=== PATIENT | female | born 1990 | race African-American/Black ===

== ENCOUNTER 2017-09-26 09:19 | Emergency (ER) | payer OTHER ==
[2017-09-26 12:43] LABS: HEMATOCRIT 42.4 % (36.0-47.0); HEMOGLOBIN 14.8 g/dl (12.0-16.0); MEAN CORPUSCULAR HEMOGLOBIN 31.2 pg (27.0-33.0); MEAN CORPUSCULAR HGB CONC 34.9 g/dl (32.0-36.5); MEAN CORPUSCULAR VOLUME 89.3 fl (80.0-96.0); PLATELET COUNT, AUTOMATED 295 10^3/uL (150-450); RED BLOOD COUNT 4.75 10^6/uL (4.00-5.40); RED CELL DISTRIBUTION WIDTH 12.2 % (11.5-14.5); WHITE BLOOD COUNT 4.6 10^3/uL (4.0-10.0)
[2017-09-26 12:56] LABS: CONTROL LINE HCG INT CTR LINE PRESENT; HCG, SERUM QUALITATIVE NEGATIVE (NEGATIVE)
[2017-09-26 13:01] LABS: AMPHETAMINES LEVEL URINE NEGATIVE (NEGATIVE); BARBITURATES URINE NEGATIVE (NEGATIVE); BENZODIAZEPINES URINE NEGATIVE (NEGATIVE); CANNABINOIDS URINE NEGATIVE (NEGATIVE); COCAINE METABOLITE URINE NEGATIVE (NEGATIVE); METHADONE URINE NEGATIVE (NEGATIVE); OPIATES URINE NEGATIVE (NEGATIVE); PHENCYCLIDINE URINE NEGATIVE (NEGATIVE)
[2017-09-26 13:10] LABS: CPK CREATINE PHOSPHOKINASE 83 U/L (26-192); TROPONIN I < 0.02 NG/ML (< 0.10)
[2017-09-26 13:21] LABS: ALBUMIN 3.3 GM/DL (3.2-5.2); ALBUMIN/GLOBULIN RATIO 0.73 (1.00-1.93); ALKALINE PHOSPHATASE 79 U/L (45-117); ALT/SGPT 17 U/L (12-78); ANION GAP 10 MEQ/L (8-16); AST/SGOT 23 U/L (7-37); BILIRUBIN,DIRECT < 0.1 MG/DL (0.0-0.2); BILIRUBIN,TOTAL 0.3 MG/DL (0.2-1.0); BLOOD UREA NITROGEN 6 MG/DL (7-18); CALCIUM LEVEL 8.5 MG/DL (8.5-10.1); CARBON DIOXIDE LEVEL 27 MEQ/L (21-32); CHLORIDE LEVEL 104 MEQ/L (98-107); CREATININE FOR GFR 0.82 MG/DL (0.55-1.30); ETHYL ALCOHOL (ETHANOL) 0.206 % (0.000-0.010); GLOMERULAR FILTRATION RATE > 60.0 (>60); GLUCOSE, FASTING 85 MG/DL (70-100); POTASSIUM SERUM 4.2 MEQ/L (3.5-5.1); SALICYLATE LEVEL < 1.7 MG/DL (5.0-30.0); SODIUM LEVEL 141 MEQ/L (136-145); TOTAL PROTEIN 7.8 GM/DL (6.4-8.2)
[2017-09-26 13:31] LABS: ACETAMINOPHEN LEVEL < 2.0 UG/ML (10.0-30.0)
[2017-09-26 14:52] LABS: D-DIMER QUANT 294.8 ng/ml (<500)
== END 2017-09-26 19:06 | disposition home or self-care (01) ==
LOC: M ED 09:19
DX: F10.129 Alcohol abuse with intoxication, unspecified (principal)
CPT/HCPCS: 71046

== ENCOUNTER 2018-03-02 03:45 | Emergency (ER) | payer OTHER | END 2018-03-02 05:55 | disposition home or self-care (01) | LOC: M ED 03:45 | DX: F10.120 Alcohol abuse with intoxication, uncomplicated (principal); F41.9 Anxiety disorder, unspecified; F17.200 Nicotine dependence, unspecified, uncomplicated | CPT/HCPCS: 99284 ==

== ENCOUNTER 2019-02-05 10:45 | Inpatient (IN) | payer OTHER ==
[~2019-02-05] VITALS: Ht 162.6 cm; Wt 68.5 kg
[~2019-02-05 10:45] MED LIST: HYDR-3363 PO
[2019-02-05 13:58] LABS: HEMATOCRIT 47.8 % (36.0-47.0); HEMOGLOBIN 17.2 g/dl (12.0-15.5); MEAN CORPUSCULAR VOLUME 94.5 fl (80.0-96.0); PLATELET COUNT, AUTOMATED 279 10^3/uL (150-450); RED BLOOD COUNT 5.06 10^6/uL (4.00-5.40); WHITE BLOOD COUNT 6.2 10^3/uL (4.0-10.0)
[2019-02-05 14:18] LABS: AMPHETAMINES LEVEL URINE NEGATIVE (NEGATIVE); BARBITURATES URINE NEGATIVE (NEGATIVE); BENZODIAZEPINES URINE NEGATIVE (NEGATIVE); CANNABINOIDS URINE POSITIVE (NEGATIVE); COCAINE METABOLITE URINE NEGATIVE (NEGATIVE); METHADONE URINE NEGATIVE (NEGATIVE); OPIATES URINE NEGATIVE (NEGATIVE); PHENCYCLIDINE URINE NEGATIVE (NEGATIVE)
[2019-02-05 14:28] LABS: ACETAMINOPHEN LEVEL < 2.0 UG/ML (10.0-30.0); ALBUMIN 4.1 GM/DL (3.2-5.2); ALT/SGPT 18 U/L (12-78); BILIRUBIN,DIRECT 0.2 MG/DL (0.0-0.2); BILIRUBIN,TOTAL 0.7 MG/DL (0.2-1.0); BLOOD UREA NITROGEN 8 MG/DL (7-18); CALCIUM LEVEL 9.4 MG/DL (8.5-10.1); CARBON DIOXIDE LEVEL 31 MEQ/L (21-32); CHLORIDE LEVEL 103 MEQ/L (98-107); CREATININE FOR GFR 1.09 MG/DL (0.55-1.30); ETHYL ALCOHOL (ETHANOL) < 0.003 % (0.000-0.010); GLOMERULAR FILTRATION RATE > 60.0 (>60); GLUCOSE, FASTING 103 MG/DL (70-100); POTASSIUM SERUM 3.8 MEQ/L (3.5-5.1); SALICYLATE LEVEL 2.6 MG/DL (5.0-30.0); SODIUM LEVEL 139 MEQ/L (136-145); THYROID STIMULATING HORMONE 0.643 uIU/ML (0.358-3.740); TOTAL PROTEIN 8.7 GM/DL (6.4-8.2)
[2019-02-05] MEDS ORDERED: LORA-674 PO (14:59)
[2019-02-05] MEDS ORDERED: MAALOX 30 ML SUSP *UDC PO PRN (16:00)
[2019-02-05] MEDS ORDERED: MOM 30ML SUSPENSION UDC PO PRN (16:00)
[2019-02-05] MEDS ORDERED: traZODone 50 MG TAB PO PRN (16:00)
[2019-02-06 06:30] VITALS: BP 125/71
--- NOTE | 2019-02-06 09:10 | HPEPDOC ---
General Date of Admission Feb 05, 2019 at 15:57 Date of Service: Feb 06, 2019 Attending Physician: BARRINGTON UNDERWOOD MD Chief Complaint The patient is a 28-year-old female admitted with a reason for visit of Unspecified Mood Disorder. Source: RN/ History of Present Illness 28-year-old female in active daily, admitted to inpatient psychiatric unit on account of acute depressive episode. On assessment, patient did admit to some degree of suicidal ideation. Patient complains of right thumb pain for the past 2 days. Otherwise, denies chills, chest pain, shortness of breath. Home Medications Scheduled Loratadine (Loratadine) 10 Mg Tablet, 10 MG PO QHS, (Reported) Allergies Coded Allergies: No Known Allergies (Unverified , 09/26/17) Past Medical History Medical History Depression Anxiety Nicotine dependence Polysubstance abuse with THC Surgical History Denies any surgical history Family History Sibling with bipolar depression, schizophrenia. Social History Smokes half a pack of cigarettes per day, denies alcohol use, THC use. A-FIB/CHADSVASC A-FIB History Current/History of A-Fib/PAF?: No Current PO Anticoag Therapy: No Review of Systems Other systems A 10 point pertinent review of systems was completed, negative except as stated in the history of presenting illness. Physical Examination Other physical findings GENERAL: NAD SKIN : Warm, dry intact HEENT: Atraumatic, normocephalic, PERRL, moist mucous membrane CARDIOVASCULAR: Regular rate and rhythm, S1S2, no JVD, no edema, distal pulses + and palpable RESP: CTAB, no accessory muscle use noted ABDOMEN: BS+ non distended non tender MS: no joint deformities NEURO: Alert and oriented x 3, CN2-12 grossly intact PSYCH: no anxiety or agitation, appropriate mood and affect. Vital Signs Vital Signs Date Time Temp Pulse Resp B/P (MAP) Pulse Ox O2 Delivery O2 Flow Rate FiO2 02/06/19 06:30 97.5 76 14 125/71 (89) 02/05/19 16:32 100 02/05/19 10:45 Room Air Laboratory Data Labs 24H Laboratory Tests 2 02/05/19 13:44: Nucleated Red Blood Cells % (auto) 0.0, Anion Gap 5L, Glomerular Filtration Rate > 60.0, Calcium Level 9.4, Aspartate Amino Transf (AST/SGOT) 22, Alanine Aminotransferase (ALT/SGPT) 18, Alkaline Phosphatase 122H, Total Bilirubin 0.7, Direct Bilirubin 0.2, Total Protein 8.7H, Albumin 4.1, Albumin/Globulin Ratio 0.89L, Thyroid Stimulating Hormone (TSH) 0.643, Salicylates Level 2.6L, Urine Amphetamines Screen NEGATIVE, Urine Benzodiazepines Screen NEGATIVE, Urine Opiates Screen NEGATIVE, Urine Methadone Screen NEGATIVE, Acetaminophen Level < 2.0L, Urine Barbiturates Screen NEGATIVE, Urine Phencyclidine Screen NEGATIVE, Urine Cocaine Metabolite Screen NEGATIVE, Urine Cannabinoids Screen POSITIVEH, Ethyl Alcohol Level < 0.003 CBC/BMP Laboratory Tests 02/05/19 13:44 Red Blood Count 5.06, Mean Corpuscular Volume 94.5, Mean Corpuscular Hemoglobin 34.0 H, Mean Corpuscular Hemoglobin Concent 36.0, Red Cell Distribution Width 13.1 Assessment/Plan Polycythemia -Repeat CBC shows hemoglobin levels still elevated at 16.5 -Patient is asymptomatic Right thumb pain. -Topical NSAID to apply to affected extremity as needed Polysubstance abuse -Assessment and management by primary team Depression with suicidal ideation -Assessment and management by primary team Plan / VTE VTE Prophylaxis Ordered?: No VTE Exclusion Mechanical Proph: Low Risk for VTE JACOBO MARSHALL Feb 06, 2019 09:10
[2019-02-06 10:00] LABS: BASO % 0.5 % (0.0-1.0); HEMATOCRIT 46.9 % (36.0-47.0); HEMOGLOBIN 16.5 g/dl (12.0-15.5); LYMPH # 1.3 10^3/uL (1.5-6.5); LYMPH % 30.9 % (24.0-44.0); MEAN CORPUSCULAR HEMOGLOBIN 33.6 pg (27.0-33.0); MEAN CORPUSCULAR HGB CONC 35.2 g/dl (32.0-36.5); MEAN CORPUSCULAR VOLUME 95.5 fl (80.0-96.0); MONO # 0.6 10^3/uL (0.0-0.8); NEUTROPHILS # 2.2 10^3/uL (1.8-7.7); NEUTROPHILS % 52.4 % (36.0-66.0); PLATELET COUNT, AUTOMATED 246 10^3/uL (150-450); RED BLOOD COUNT 4.91 10^6/uL (4.00-5.40); WHITE BLOOD COUNT 4.1 10^3/uL (4.0-10.0)
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
[2019-02-06] MEDS: ANALGESIC BALM CRM 120 GM TOP SCH ×3 (12:28→21:00)
[2019-02-06 17:46] VITALS: BP 124/81
[2019-02-06 18:00] VITALS: BP 124/81
[2019-02-07 06:31] VITALS: BP 110/67
[2019-02-07] MEDS: ANALGESIC BALM CRM 120 GM TOP SCH ×4 (09:58→20:00)
[2019-02-07 18:14] VITALS: BP 134/81
[2019-02-07] MEDS: ACETAMINOPHEN TAB 650MG DOSE (2X325MG) PO PRN (19:59)
--- NOTE | 2019-02-07 20:15 | MHIPNPDOC ---
[facility] Progress Note Progress Note DATE OF SERVICE: 02/07/19 HISTORY: Patient is a 28 -year-old , female, who as per ED report: "PT is AD 4 years without combat deployments. 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 Prior to leaving she tested positive for mairjuana so her date was canceled and she was given extra duty, redictin of rank and pay. PT had one week left and she went AWOL stating she ahd a family emergency. While she was gone PT was communicating with her [facility] counselor but she states her messages to her [place] went unanswered. PT decided to fly back here and address the AWOL and she arrived yesterday. A friend picked her up and let her stay the night. [place]. 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 PT states she was messaging her counselor that she is overwhelmed and the counselor told her to go to ED. 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 I'll do anything I can think of. I have no one here". VITAL SIGNS: See below. NEW TEST RESULTS: See below CURRENT MEDICATIONS: See below. MENTAL STATUS EXAMINATION: ASSESSMENT: MANAGEMENT PLAN: . General Appearance: well groomed, appears stated age, hospital scubs/clothing Build: average Demeanor: less guarded, not hostile, preoccupied, sad, stressed Eye Contact: poor Activity: Less anxious, sad, she doesn't have psychomotor agitation Behavior: depressed, angry but controlled Speech: spontaneous, fluent, normal tone, volume, rhythm, rate Mood: depressed, anxious, angry, irritable Affect: less constricted, appropriate, labile, incongruent, anxious, sad Thought Process: logical/linear Thought Content (Delusions): none reported Thought Content (Other): catastrophe thinking, generalization Thought Content (Aggressive): none reported Perception (Hallucinations): none reported Perception (Other): none reported Cognition (Impairment of): none reported Cognition(Intelligence Est.): average Oriented: Awake, Alert, Oriented times three Insight: poor Judgment: Poor Psychosis: Denies Diagnoses 1. Unspecified mood disorder, r/o major depressive disorder, recurrent, severe 2. NELSON 3. Unspecified trauma stressor disorder Assessment: The patient is still very stressed out and still refuses medications but she is less guarded, less angry, less irritable. She is still sad, at times she tries to contains her tears. She tells me how she feels, the arguments, the misunderstandings, lorena lack of support (as she perceives it 0 from her Moni that lead to all these problems. She says she only wants to get it over and get out of the [employer]. TIME SPENT: 30 minutes. Vital Signs Vital Signs Date Time Temp Pulse Resp B/P (MAP) Pulse Ox O2 Delivery O2 Flow Rate FiO2 02/07/19 18:14 97.8 73 16 134/81 (98) 02/05/19 16:32 100 02/05/19 10:45 Room Air Current Medications Current Medications Acetaminophen (Tylenol Tab) 650 mg Q6HP PRN PO HEADACHE or DISCOMFORT; Start 02/05/19 at 16:00 Al Hydrox/Mg Hydrox/Simethicone (Mylanta) 30 ml Q4HP PRN PO HEARTBURN/INDIGESTION; Start 02/05/19 at 16:00 Home Med (Med Rec Complete!) ASDIRECTED XX ; Start 02/05/19 at 15:00; Stop 02/05/19 at 15:21; Status DC Magnesium Hydroxide (Milk Of Magnesia) 30 ml DAILYPRN PRN PO CONSTIPATION; Start 02/05/19 at 16:00 Menthol/Methyl Salicylate (Bengay Cream) apply to right thumb QID TOP Last administered on 02/07/19at 14:00; Start 02/06/19 at 13:00 Trazodone HCl (Desyrel) 50 mg QHSP PRN PO INSOMNIA; Start 02/05/19 at 16:00 Allergies Coded Allergies: No Known Allergies (Unverified , 09/26/17) FERNANDO FORD MD Feb 07, 2019 19:48
[2019-02-08 06:33] VITALS: BP 116/73
[2019-02-08] MEDS: ACETAMINOPHEN TAB 650MG DOSE (2X325MG) PO PRN ×3 (08:59→22:55)
[2019-02-08] MEDS: ANALGESIC BALM CRM 120 GM TOP SCH ×4 (08:59→21:00)
[2019-02-08 18:02] VITALS: BP 113/70
--- NOTE | 2019-02-08 21:34 | MHIPNPDOC ---
[facility] Progress Note Progress Note DATE OF SERVICE: 02/08/19 HISTORY: Patient is a 28 -year-old , female, who as per ED report: "PT is AD 4 years without combat deployments. 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 Prior to leaving she tested positive for mairjuana so her date was canceled and she was given extra duty, redictin of rank and pay. PT had one week left and she went AWOL stating she ahd a family emergency. While she was gone PT was communicating with her [facility] counselor but she states her messages to her [place] went unanswered. PT decided to fly back here and address the AWOL and she arrived yesterday. A friend picked her up and let her stay the night. [place]. 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 PT states she was messaging her counselor that she is overwhelmed and the counselor told her to go to ED. 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 I'll do anything I can think of. I have no one here". VITAL SIGNS: See below. NEW TEST RESULTS: See below CURRENT MEDICATIONS: See below. MENTAL STATUS EXAMINATION: ASSESSMENT: MANAGEMENT PLAN: . General Appearance: well groomed, appears stated age, hospital scrubs/clothing Build: average Demeanor: Extremely anxious, at times she looks as if she is shaking, she is very scared about the consequences of having gone AWOL and smoking marijuana within the [employer] Eye Contact: poor Activity: Restless, fidgety, anxious Behavior: depressed, angry. She lost control today and walked out of the room, she slammed her room door. Speech: spontaneous, fluent, normal tone, volume, rhythm, rate Mood: depressed, anxious, angry, irritable Affect: angry, very anxious, labile, incongruent, sad/depressed Thought Process: logical/linear Thought Content (Delusions): none reported Thought Content (Other): catastrophic thinking, over generalization Thought Content (Aggressive): none reported Perception (Hallucinations): none reported Perception (Other): none reported Cognition (Impairment of): none reported Cognition(Intelligence Est.): average Oriented: Awake, Alert, Oriented times three Insight: poor Judgment: Poor Psychosis: Denies Diagnoses 1. Unspecified mood disorder, r/o major depressive disorder, recurrent, severe 2. NELSON 3. Unspecified trauma stressor disorder Assessment: This commercial insurance underwriter was trying to help her think past the present moment and she became irritable, she asked "do you realize that I'm leavint the [employer] as a criminal?" I said, I knew that, she walked out, she left the room and slammed the door of her room. later on she was brought in by Ila because she had asked to see me after Ila told her we could help her if she agreed to it. She was receptive, she ventilated, she was shaking and tearful at times (but trying to control the tears all the time). I explained how SSRI's work and asked her to reconsider, once again, to take her medications, then she said she was going to tell her about the medicines and I said that if she decides to take them she only has to tell the Nurses if I'm gone for the day and they can contact me, so we can start treatment. I told her I'm really concerned about her because she is crumbling and if she goes back like this to the [employer], she might not be able to tolerate it. She is very vulnerable, very anxious, very depressed. Vital Signs Vital Signs Date Time Temp Pulse Resp B/P (MAP) Pulse Ox O2 Delivery O2 Flow Rate FiO2 02/08/19 18:02 99.2 67 16 113/70 (84) 02/05/19 16:32 100 02/05/19 10:45 Room Air Current Medications Current Medications Acetaminophen (Tylenol Tab) 650 mg Q6HP PRN PO HEADACHE or DISCOMFORT Last administered on 02/08/19at 15:36; Start 02/05/19 at 16:00 Al Hydrox/Mg Hydrox/Simethicone (Mylanta) 30 ml Q4HP PRN PO HEARTBURN/INDIGESTION; Start 02/05/19 at 16:00 Home Med (Med Rec Complete!) ASDIRECTED XX ; Start 02/05/19 at 15:00; Stop 02/05/19 at 15:21; Status DC Magnesium Hydroxide (Milk Of Magnesia) 30 ml DAILYPRN PRN PO CONSTIPATION; Start 02/05/19 at 16:00 Menthol/Methyl Salicylate (Bengay Cream) apply to right thumb QID TOP Last a dministered on 02/07/19at 14:00; Start 02/06/19 at 13:00 Trazodone HCl (Desyrel) 50 mg QHSP PRN PO INSOMNIA; Start 02/05/19 at 16:00 Allergies Coded Allergies: No Known Allergies (Unverified , 09/26/17) FERNANDO FORD MD Feb 08, 2019 19:34
[2019-02-09 06:49] VITALS: BP 116/72
[2019-02-09] MEDS: ANALGESIC BALM CRM 120 GM TOP SCH ×4 (08:28→21:00)
[2019-02-09] MEDS: ACETAMINOPHEN TAB 650MG DOSE (2X325MG) PO PRN ×2 (15:30→23:11)
[2019-02-09 18:03] VITALS: BP 125/78
--- NOTE | 2019-02-09 23:30 | MHIPNPDOC ---
[facility] Progress Note Progress Note DATE OF SERVICE: 02/09/19 HISTORY: Patient is a 28 -year-old , female, who as per ED report: "PT is AD 4 years without combat deployments. 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 Prior to leaving she tested positive for mairjuana so her date was canceled and she was given extra duty, redictin of rank and pay. PT had one week left and she went AWOL stating she ahd a family emergency. While she was gone [facility] but she states her messages to her [employer] went unanswered. PT decided to fly back here and address the AWOL and she arrived yesterday. A friend picked her up and let her stay the night. [place]. 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 PT states she was messaging her counselor that she is overwhelmed and the counselor told her to go to ED. 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 I'll do anything I can think of. I have no one here". VITAL SIGNS: See below. NEW TEST RESULTS: See below CURRENT MEDICATIONS: See below. MENTAL STATUS EXAMINATION: ASSESSMENT: MANAGEMENT PLAN: . General Appearance: well groomed, appears stated age, hospital scrubs/clothing Build: average Demeanor: Extremely anxious, at times she looks as if she is shaking, she is very scared about the consequences of having gone AWOL and smoking marijuana within [employer] Eye Contact: poor Activity: Restless, fidgety, anxious Behavior: depressed, angry. She lost control today and walked out of the room, she slammed her room door. Speech: spontaneous, fluent, normal tone, volume, rhythm, rate Mood: depressed, anxious, angry, irritable Affect: angry, very anxious, labile, incongruent, sad/depressed Thought Process: logical/linear Thought Content (Delusions): none reported Thought Content (Other): catastrophic thinking, over generalization Thought Content (Aggressive): none reported Perception (Hallucinations): none reported Perception (Other): none reported Cognition (Impairment of): none reported Cognition(Intelligence Est.): average Oriented: Awake, Alert, Oriented times three Insight: poor Judgment: Poor Psychosis: Denies Diagnoses 1. Unspecified mood disorder, r/o major depressive disorder, recurrent, severe 2. NELSON 3. Unspecified trauma stressor disorder Assessment: Patient is very irritable, lopez because she says she feels everybody is getting frustrated because she is not taking the "f....ing antidepressants, like this is my f....ing problem, why are they getting f rustrated?". I explained that there is something called counter transference and probably the staff worries about her weel being because she is not stable and is not getting any better but I reassured her that I will speak with staff so that nobody talks to her about taking medications and I explained lorena t we have found out that because of her anxiety she is not listening to what we tell her because she is so caught up in her anxious thoughts all the time. She became loud and agitated but was able to calm down. She will be d[facility]c/d to [facility] on Tuesday. TIME SPENT: 15 minutes Vital Signs Vital Signs Date Time Temp Pulse Resp B/P (MAP) Pulse Ox O2 Delivery O2 Flow Rate FiO2 02/09/19 18:03 98.1 64 16 125/78 (94) 02/05/19 16:32 100 02/05/19 10:45 Room Air Current Medications Current Medications Acetaminophen (Tylenol Tab) 650 mg Q6HP PRN PO HEADACHE or DISCOMFORT Last administered on 02/09/19at 23:11; Start 02/05/19 at 16:00 Al Hydrox/Mg Hydrox/Simethicone (Mylanta) 30 ml Q4HP PRN PO HEARTBURN/INDIGESTION; Start 02/05/19 at 16:00 Home Med (Med Rec Complete!) ASDIRECTED XX ; Start 02/05/19 at 15:00; Stop 02/05/19 at 15:21; Status DC Magnesium Hydroxide (Milk Of Magnesia) 30 ml DAILYPRN PRN PO CONSTIPATION; Start 02/05/19 at 16:00 Menthol/Methyl Salicylate (Bengay Cream) apply to right thumb QID TOP Last administered on 02/07/19at 14:00; Start 02/06/19 at 13:00 Trazodone HCl (Desyrel) 50 mg QHSP PRN PO INSOMNIA; Start 02/05/19 at 16:00 Allergies Coded Allergies: No Known Allergies (Unverified , 09/26/17) FERNANDO FORD MD Feb 09, 2019 23:30
[2019-02-10 06:31] VITALS: BP 117/67
[2019-02-10] MEDS: ANALGESIC BALM CRM 120 GM TOP SCH ×4 (10:00→21:00)
[2019-02-10 18:51] VITALS: BP 125/73
[2019-02-11 06:45] VITALS: BP 110/63
[2019-02-11] MEDS: ANALGESIC BALM CRM 120 GM TOP SCH ×4 (08:43→21:00)
[2019-02-11 18:12] VITALS: BP 116/72
[2019-02-11] MEDS: ACETAMINOPHEN TAB 650MG DOSE (2X325MG) PO PRN (21:45)
[2019-02-12 06:38] VITALS: BP 122/85
[2019-02-12] MEDS: ANALGESIC BALM CRM 120 GM TOP SCH ×2 (08:36→12:16)
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
== END 2019-02-12 13:07 | disposition home or self-care (01) | DRG 885 ==
LOC: M ED 10:45 → M ED INP 15:57 → M PSY 16:50
PROVIDERS: ADMIT Psychiatry & Neurology Psychiatry; ATTEND Psychiatry & Neurology Psychiatry
DX: F33.9 Major depressive disorder, recurrent, unspecified (principal); R45.851 Suicidal ideations; F41.1 Generalized anxiety disorder; F60.89 Other specific personality disorders; F17.210 Nicotine dependence, cigarettes, uncomplicated; D75.1 Secondary polycythemia